=== PATIENT | female | born 1990 | race American Indian/Alaskan Native ===

== ENCOUNTER 2018-06-30 06:21 | Inpatient (IN) | payer OTHER ==
[~2018-06-30 06:21] MED LIST: Nalbuphine 20 MG/ML 1 ML Syringe IVPUSH PRN; Oxytocin/Lactated Ringers 10 UNIT/1,000 ML BAG IV SCH; Sodium Chloride 0.9% 10 ML Syringe FLUSH PRN
[2018-06-30] MEDS ORDERED: Pneumococcal Polyvalent-23 Vaccine 0.5 ML SDV IM ONE (06:46)
[2018-06-30] MEDS ORDERED: Citric Acid/Sodium Citrate Solution 30 ML Cup ONE (06:49)
[2018-06-30] MEDS: Lactated Ringers 1,000 ML IV SCH ×3 (06:53→09:24)
[2018-06-30] MEDS ORDERED: ceFAZolin 2 GM in Premix Bag 1 BAG IV ONE (07:00)
[2018-06-30] MEDS ORDERED: Metoclopramide 10 MG/2 ML SDV IVPUSH ONE (07:00)
[2018-06-30] MEDS ORDERED: Citric Acid/Sodium Citrate Solution 30 ML Cup PO ONE (07:00)
[2018-06-30] MEDS ORDERED: Bupivacaine 0.5% 30 ML SDV ONE (07:14)
[2018-06-30] MEDS ORDERED: ceFAZolin 1 GM Vial ONE (07:15)
[2018-06-30] MEDS ORDERED: Oxytocin 10 Units/1 ML SDV ONE (07:17)
[2018-06-30] MEDS ORDERED: Bupivacaine 0.75%/D5W 2 ML Amp ONE (07:19)
[2018-06-30] MEDS ORDERED: Morphine PF 1 MG/ML Amp ONE (07:22)
[2018-06-30] MEDS ORDERED: Phenylephrine/Normal Saline 100 MCG/ML 10 ML Syringe ONE (07:51)
[2018-06-30] MEDS ORDERED: Lactated Ringers 1,000 ML ONE (07:59)
[2018-06-30] MEDS ORDERED: Ketorolac 30 MG/ML SDV ONE (08:11)
[2018-06-30] MEDS ORDERED: fentaNYL 100 MCG/2 ML SDV IVPUSH PRN (08:41)
--- NOTE | 2018-06-30 08:42 | PCM.POSTAN ---
POST ANESTHESIA ASSESSMENT - MENTAL STATUS Mental Status: Alert, Oriented - VITAL SIGNS Pulse Rate: 73 SaO2: 96 Resp Rate: 10 Blood Pressure: 95/57 Temperature: 36.3 C - RESPIRATORY Respiratory Status: Respiratory Rate WNL, Airway Patent, O2 Saturation Stable, Supplemental Oxygen - CARDIOVASCULAR CV Status: Pulse Rate WNL, Blood Pressure Stable - GASTROINTESTINAL GI Status: No Symptoms - PAIN Pain Score: 0 - POST OP HYDRATION Hydration Status: Adequate & Stable - OBSERVATIONS Free Text/Narrative:: no anesthesia complications noted
--- NOTE | 2018-06-30 08:45 | PCM.OPNOTE ---
- General Post-Op/Procedure Note Date of Surgery/Procedure: 06/30/18 Operative Procedure(s): repeat section Findings: viable IUP, male weight 7#1oz, 05/06 at 0808 Pre Op Diagnosis: prior Post-Op Diagnosis: Same Anesthesia Technique: Spinal Primary Surgeon: Heather Atowod Anesthesia Provider: Milan Aranda Wing Mailer Machine Operator: Mattie Kc Role of Wing Mailer Machine Operator: patient safety Fluid Replacement, Intraop: 3,000 Output, Urine Amount: 75 EBL in mLs: 350 Complications: None Condition: Good Free Text/Narrative:: The patient was taken to the operating room where spinal anesthesia was dosed to surgical levels without difficulty. The patient was prepped and draped in the usual sterile fashion in the dorsal supine position with a leftward tilt. A Pfannenstiel skin incision was made with the scalpel and carried through to the underlying layer of fascia. The fascia was incised in the midline and extended laterally using Guajardo scissors. Ginette clamps were used to elevate the superior aspect of the fascial incision, which was elevated, and the underlying rectus muscles were dissected off bluntly and using Guajardo scissors. Attention was then turned to the inferior aspect of the fascial incision, which in similar fashion was grasped with Ginette clamps, elevated, and the underlying rectus muscles were dissected off bluntly and using the guajardo. The rectus muscles were dissected in the midline. The peritoneum was entered bluntly; this incision was extended superiorly and inferiorly with good visualization of the bladder. The bladder blade was inserted. The vesicouterine peritoneum was identified and entered sharply using Metzenbaum scissors. This incision was extended laterally and the bladder flap was created digitally. The bladder blade was reinserted. The lower uterine segment was incised in a transverse fashion using the scalpel and with digital traction. Clear fluid was noted. The infant was subsequently delivered by flexing the head to the incision. Kiwi vacuum used to assist. Body and shoulders followed without difficulty. The cord was clamped and cut. The was subsequently handed to the awaiting barrel charrer whose presence had been requested.. The placenta was delivered spontaneously intact with a three-vessel cord noted. The uterus was exteriorized and cleared of all clots and debris. The uterine incision was repaired in 2 layers using 0 monocryl. Hemostasis was visualized. Hemostasis was visualized bilaterally. The uterus was returned to the abdomen. The uterine incision was reexamined and it was noted to be hemostatic. The pelvis was copiously irrigated. The fascia was closed with 1 PDS suture, and the skin was closed with 3-0 monocryl. Sponge, lap, and instrument counts were correct x2. The patient was stable at the completion of the procedure and was subsequently transferred to the recovery room in stable condition.
--- NOTE | 2018-06-30 08:45 | PCM.PREANE ---
Preanesthetic Assessment - Anesthesia/Transfusion/Family Hx Anesthesia History: Prior Anesthesia Without Reaction Family History of Anesthesia Reaction: No Transfusion History: No Prior Transfusion(s) - Review of Systems General: No Symptoms Pulmonary: No Symptoms Cardiovascular: No Symptoms Gastrointestinal: No Symptoms Neurological: No Symptoms Other: Reports: None - Physical Assessment NPO Status Date: 06/29/18 NPO Status Time: 22:30 Pulse: 71 O2 Sat by Pulse Oximetry: 100 Respiratory Rate: 14 Blood Pressure: 111/68 Temperature: 36.8 C Vital Signs: Last Vital Signs Temp 36.3 C 06/30/18 08:42 Pulse 73 06/30/18 08:42 Resp 10 L 06/30/18 08:42 BP 95/57 L 06/30/18 08:42 Pulse Ox 96 06/30/18 08:42 Height: 1.65 m Weight: 85.729 kg ASA Class: 2 Mental Status: Alert & Oriented x3 Airway Class: Mallampati = 1 Dentition: Reports: Implants (top right 2nd), Broken Tooth/Teeth (top left 2nd) Thyro-Mental Finger Breadths: 3 Mouth Opening Finger Breadths: 3 ROM/Head Extension: Full Lungs: Clear to Auscultation, Normal Respiratory Effort Cardiovascular: Regular Rate, Regular Rhythm - Lab Values: Laboratory Last Values WBC 7.22 K/mm3 (3.98-10.04) 06/30/18 06:40 RBC 4.35 M/mm3 (3.98-5.22) 06/30/18 06:40 Hgb 10.9 gm/L (11.2-15.7) L 06/30/18 06:40 Hct 34.1 % (34.1-44.9) 06/30/18 06:40 MCV 78.4 fl (79.4-94.8) L 06/30/18 06:40 MCH 25.1 pg (25.6-32.2) L 06/30/18 06:40 MCHC 32.0 g/dl (32.2-35.5) L 06/30/18 06:40 RDW Std Deviation 36.6 fL (36.4-46.3) 06/30/18 06:40 Plt Count 278 K/mm3 (182-369) 06/30/18 06:40 MPV 9.7 fl (9.4-12.3) 06/30/18 06:40 Neut % (Auto) 62.3 % (34.0-71.1) 06/30/18 06:40 Lymph % (Auto) 29.1 % (19.3-51.7) 06/30/18 06:40 [place] % (Auto) 6.9 % (4.7-12.5) 06/30/18 06:40 Eos % (Auto) 1.4 (0.7-5.8) 06/30/18 06:40 Baso % (Auto) 0.3 % (0.1-1.2) 06/30/18 06:40 Neut # (Auto) 4.50 K/mm3 (1.56-6.13) 06/30/18 06:40 Lymph # (Auto) 2.10 K/mm3 (1.18-3.74) 06/30/18 06:40 Grant # (Auto) 0.50 K/mm3 (0.24-0.36) H 06/30/18 06:40 Eos # (Auto) 0.10 K/mm3 (0.04-0.36) 06/30/18 06:40 Baso # (Auto) 0.02 K/mm3 (0.01-0.08) 06/30/18 06:40 Urine Color Yellow (Yellow) 06/30/18 07:24 Urine Appearance Cloudy (Clear) H 06/30/18 07:24 Urine pH 7.0 (5.0-8.0) 06/30/18 07:24 Ur Specific [place] 1.025 (1.005-1.030) 06/30/18 07:24 Urine Protein Negative (Negative) 06/30/18 07:24 Urine Glucose (UA) Negative (Negative) 06/30/18 07:24 Urine Ketones Negative (Negative) 06/30/18 07:24 Urine Occult Blood Negative (Negative) 06/30/18 07:24 Urine Nitrite Negative (Negative) 06/30/18 07:24 Urine Bilirubin Negative (Negative) 06/30/18 07:24 Urine Urobilinogen 1.0 (0.2-1.0) 06/30/18 07:24 Ur Leukocyte Esterase 1+ (Negative) H 06/30/18 07:24 Urine Opiates Screen Negative (NEGATIVE) 06/30/18 07:21 Ur Buprenorphine Scrn Negative (NEGATIVE) 06/30/18 07:21 Ur Oxycodone Screen Negative (NEGATIVE) 06/30/18 07:21 Urine Methadone Screen Negative (NEGATIVE) 06/30/18 07:21 Ur Propoxyphene Screen Negative (NEGATIVE) 06/30/18 07:21 Ur Barbiturates Screen Negative (NEGATIVE) 06/30/18 07:21 Ur Tricyclics Screen Negative (NEGATIVE) 06/30/18 07:21 Ur Phencyclidine Scrn Negative (NEGATIVE) 06/30/18 07:21 Ur Amphetamine Screen Negative (NEGATIVE) 06/30/18 07:21 U Methamphetamines Scrn Negative (NEGATIVE) 06/30/18 07:21 U Benzodiazepines Scrn Negative (NEGATIVE) 06/30/18 07:21 U Cocaine Metab Screen Negative (NEGATIVE) 06/30/18 07:21 U Marijuana (THC) Screen Negative (NEGATIVE) 06/30/18 07:21 Blood Type O POSITIVE 06/30/18 06:48 Gel Antibody Screen Negative 06/30/18 06:48 - Allergies Allergies/Adverse Reactions: Allergies Allergy/AdvReac Type Severity Reaction Status Date / Time No Known Allergies Allergy Verified 06/30/18 06:50 - Anesthesia Plan Pre-Op Medication Ordered: Antacids - Acknowledgements Anesthesia Type Planned: Spinal Pt an Appropriate Candidate for the Planned Anesthesia: Yes Alternatives and Risks of Anesthesia Discussed w Pt/Guardian: Yes Pt/Guardian Understands and Agrees with Anesthesia Plan: Yes PreAnesthesia Questionnaire - Past Health History Medical/Surgical History: Denies Medical/Surgical History Gastrointestinal History: Reports: GERD 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 History: Reports: Psychiatric History: Reports: Bipolar Other Psychiatric History: not medicated for bipolar - Past Surgical History HEENT Surgical History: Reports: Oral Surgery Female Surgical History: Reports: Section Other Female Surgeries/Procedures: x3 - SUBSTANCE USE Smoking Status *Q: Former Smoker Tobacco Use Within Last Twelve Months: Cigarettes Recreational Drug Use History: Yes Recreational Drug Type: Reports: Amphetamines (Speed), Methamphetamine - HOME MEDS Home Medications: Home Meds Pnv No.122/Iron/Folic Acid [ Multi Tablet] 1 each PO DAILY 06/30/18 [ History] Ranitidine [Zantac] 150 mg PO BID 06/30/18 [History] - CURRENT (IN HOUSE) MEDS Current Meds: Current Medications Fentanyl (Sublimaze) 50 mcg IVPUSH Q5M PRN PRN Reason: Pain Lactated Ringer's (Ringers, Lactated) 1,000 mls @ 125 mls/hr IV ASDIRECTED [facility] Last Admin: 06/30/18 07:22 Dose: 125 mls/hr Oxytocin/Lactated Ringer's (Pitocin In Lr 10 Units/1,000 Ml) 10 unit in 1,000 mls @ 100 mls/hr IV ASDIRECTED [facility] Nalbuphine HCl (Nubain) 10 mg IVPUSH Q2H PRN PRN Reason: pain Sodium Chloride (Saline Flush) 10 ml FLUSH ASDIRECTED PRN PRN Reason: Keep Vein Open Discontinued Medications Bupivacaine HCl (Marcaine 0.5%) Confirm Administered Dose 30 ml .ROUTE .STK-MED ONE Stop: 06/30/18 07:15 Bupivacaine HCl/Dextrose (Marcaine 0.75% Spinal) Confirm Administered Dose 2 ml .ROUTE .STK-MED ONE Stop: 06/30/18 07:20 Cefazolin Sodium (Ancef) Confirm Administered Dose 2 gm .ROUTE .STK-MED ONE Stop: 06/30/18 07:16 Citric Acid/Sodium Citrate (Bicitra Solution) 30 ml PO ONETIME ONE Stop: 06/30/18 07:01 Last Admin: 06/30/18 06:53 Dose: 30 ml Citric Acid/Sodium Citrate (Bicitra Solution) Confirm Administered Dose 30 ml .ROUTE .STK-MED ONE Stop: 06/30/18 06:50 Cefazolin Sodium/Dextrose 2 gm (/ Premix) 50 mls @ 100 mls/hr IV ONETIME ONE Stop: 06/30/18 07:29 Lidocaine HCl (Xylocaine-Mpf 1%) Confirm Administered Dose 5 mls @ as directed .ROUTE .STK-MED ONE Stop: 06/30/18 07:20 Lactated Ringer's (Ringers, Lactated) Confirm Administered Dose 1,000 mls @ as directed .ROUTE .STK-MED ONE Stop: 06/30/18 08:00 Influenza Virus Vaccine (Pharmacy To Dose - Influenza Vaccine) 0 each IM ONETIME ONE Stop: 06/30/18 06:47 Ketorolac Tromethamine (Toradol) Confirm Administered Dose 30 mg .ROUTE .STK- MED ONE Stop: 06/30/18 08:12 Metoclopramide HCl (Reglan) 10 mg IVPUSH ONETIME ONE Stop: 06/30/18 07:01 Last Admin: 06/30/18 06:53 Dose: 10 mg Morphine Sulfate (Duramorph Pf) Confirm Administered Dose 1 mg .ROUTE .STK-MED ONE Stop: 06/30/18 07:23 Oxytocin (Pitocin) Confirm Administered Dose 10 unit .ROUTE .STK-MED ONE Stop: 06/30/18 07:18 Phenylephrine HCl (Phenylephrine In Ns 100 Mcg/Ml) Confirm Administered Dose 1 mg .ROUTE .STK-MED ONE Stop: 06/30/18 07:52 Pneumococcal Polyvalent Vaccine (Pneumovax 23) 0.5 ml IM .ONCE ONE Stop: 06/30/18 06:47
[2018-06-30] MEDS ORDERED: Naloxone 0.4 MG/ML SDV IVPUSH PRN (09:51)
[2018-06-30] MEDS ORDERED: Dextrose 5%-Lactated Ringers 1,000 ML IV SCH (09:51)
[2018-06-30] MEDS ORDERED: Docusate Sodium 100 MG Cap PO PRN (09:51)
[2018-06-30] MEDS ORDERED: ePHEDrine 50 MG/ML SDV IVPUSH PRN (09:51)
[2018-06-30] MEDS ORDERED: Lanolin 100% Cream 7 GM Tube TOP PRN (09:51)
[2018-06-30] MEDS ORDERED: Ondansetron 4 MG/2 ML SDV ONE (09:56)
[2018-06-30] MEDS: diphenhydrAMINE 50 MG/ML SDV IVPUSH PRN ×2 (15:36→23:02)
[2018-06-30] MEDS ORDERED: Lactated Ringers 1,000 ML IV ONE (15:52)
[2018-06-30] MEDS: Lactated Ringers 1,000 ML ONE ×2 (16:30→17:00)
[2018-06-30] MEDS: Ibuprofen 600 MG Tab PO PRN (23:03)
[2018-07-01] MEDS: Acetaminophen/oxyCODONE 325-5 MG Tab PO PRN ×5 (01:06→22:54)
--- NOTE | 2018-07-01 07:30 | PCM48HPAN ---
Post Anesthesia Note - EVALUATION WITHIN 48HRS OF ANESTHETIC Vital Signs in Normal Range: Yes Patient Participated in Evaluation: Yes Respiratory Function Stable: Yes Airway Patent: Yes Cardiovascular Function Stable: Yes Hydration Status Stable: Yes Pain Control Satisfactory: Yes Nausea and Vomiting Control Satisfactory: Yes Mental Status Recovered: Yes Pulse Rate: 64 Resp Rate: 14 Temperature: 36.6 C Blood Pressure: 93/73 - COMMENTS/OBSERVATIONS Free Text/Narrative:: no anesthesia complications noted
[2018-07-01] MEDS: Ibuprofen 600 MG Tab PO PRN ×2 (13:36→20:57)
[2018-07-02] MEDS: Acetaminophen/oxyCODONE 325-5 MG Tab PO PRN ×2 (02:54→09:06)
[2018-07-02] MEDS: Ibuprofen 600 MG Tab PO PRN (06:46)
--- NOTE | 2018-07-02 09:33 | PCM.DCSUM1 ---
Discharge Summary - Hospital Course Diagnosis: Stroke: No - Discharge Data Discharge Date: 07/02/18 Discharge Disposition: Home, Self-Care 01 Condition: Good - Patient Summary/Data Operative Procedure(s) Performed: repeat section Consults: Consultations 06/30/18 09:51 Consult to Spiritual Care [CONS] Routine - Patient Instructions Diet: Usual Diet as Tolerated Activity: No Strenuous Activities Driving: Do Not Drive Showering/Bathing: May Shower Wound/Incision Care: Keep Operative Site/Wound Site Clean and Dry Notify Provider of: Fever, Increased Pain, Swelling and Redness, Drainage, Nausea and/or Vomiting - Discharge Plan *PRESCRIPTION DRUG MONITORING PROGRAM REVIEWED*: No *COPY OF PRESCRIPTION DRUG MONITORING REPORT IN PATIENT KUN: No Home Medications: Home Meds Pnv No.122/Iron/Folic Acid [ Multi Tablet] 1 each PO DAILY 06/30/18 [ History] Ranitidine [Zantac] 150 mg PO BID 06/30/18 [History] - Discharge Summary/Plan Comment DC Time >30 min.: No - General Info Date of Service: 07/02/18 Functional Status: Reports: Pain Controlled - Review of Systems General: Reports: No Symptoms HEENT: Reports: No Symptoms Pulmonary: Reports: No Symptoms Cardiovascular: Reports: No Symptoms Gastrointestinal: Reports: No Symptoms Genitourinary: Reports: No Symptoms Musculoskeletal: Reports: No Symptoms Skin: Reports: No Symptoms Neurological: Reports: No Symptoms Psychiatric: Reports: No Symptoms - Patient Data Vitals - Most Recent: Last Vital Signs Temp 36.5 C 07/01/18 20:13 Pulse 63 07/01/18 20:13 Resp 16 07/01/18 20:13 BP 134/108 H 07/01/18 20:13 Pulse Ox 98 07/01/18 20:13 Weight - Most Recent: 85.729 kg I&O - Last 24 hours: Intake & Output 07/01/18 07/02/18 07/02/18 22:59 06:59 14:59 Intake Total 600 Output Total 350 Balance 250 Lab Results - Last 24 hrs: Laboratory Results - last 24 hr 07/01/18 Range/Units 06:10 RPR Non-reactive (NONREACTIVE) Med Orders - Current: Current Medications Diphenhydramine HCl (Benadryl) 25 mg IVPUSH Q6H PRN PRN Reason: Itching or Nausea Last Admin: 06/30/18 23:02 Dose: 25 mg Docusate Sodium (Colace) 100 mg PO Q12H PRN PRN Reason: Constipation Last Admin: 07/01/18 12:07 Dose: 100 mg Emollient Ointment (Lansinoh Hpa) 0 gm TOP ASDIRECTED PRN PRN Reason: Sore Nipples Ephedrine Sulfate (Ephedrine Sulfate) 5 mg IVPUSH SEECOMMENT PRN PRN Reason: Other Ibuprofen (Motrin) 600 mg PO Q6H PRN PRN Reason: mild pain or fever Last Admin: 07/02/18 06:46 Dose: 600 mg Naloxone HCl (Narcan) 0.1 mg IVPUSH SEECOMMENT PRN PRN Reason: Respiratory Depression Oxycodone/Acetaminophen (Percocet 325-5 Mg) 2 tab PO Q4H PRN PRN Reason: Pain (moderate 4-6) Last Admin: 07/02/18 09:06 Dose: 2 tab Discontinued Medications Bupivacaine HCl (Marcaine 0.5%) Confirm Administered Dose 30 ml .ROUTE .STK-MED ONE Stop: 06/30/18 07:15 Last Admin: 06/30/18 07:58 Dose: 20 ml Bupivacaine HCl/Dextrose (Marcaine 0.75% Spinal) Confirm Administered Dose 2 ml .ROUTE .STK-MED ONE Stop: 06/30/18 07:20 Cefazolin Sodium (Ancef) Confirm Administered Dose 2 gm .ROUTE .STK-MED ONE Stop: 06/30/18 07:16 Citric Acid/Sodium Citrate (Bicitra Solution) 30 ml PO ONETIME ONE Stop: 06/30/18 07:01 Last Admin: 06/30/18 06:53 Dose: 30 ml Citric Acid/Sodium Citrate (Bicitra Solution) Confirm Administered Dose 30 ml .ROUTE .STK-MED ONE Stop: 06/30/18 06:50 Last Admin: 06/30/18 10:03 Dose: Not Given Fentanyl (Sublimaze) 50 mcg IVPUSH Q5M PRN PRN Reason: Pain Stop: 06/30/18 18:00 Cefazolin Sodium/Dextrose 2 gm (/ Premix) 50 mls @ 100 mls/hr IV ONETIME ONE Stop: 06/30/18 07:29 Last Admin: 06/30/18 10:03 Dose: Not Given Lactated Ringer's (Ringers, Lactated) 1,000 mls @ 125 mls/hr IV ASDIRECTED [facility] Last Admin: 06/30/18 09:24 Dose: 125 mls/hr Oxytocin/Lactated Ringer's (Pitocin In Lr 10 Units/1,000 Ml) 10 unit in 1,000 mls @ 100 mls/hr IV ASDIRECTED [facility] Lidocaine HCl (Xylocaine-Mpf 1%) Confirm Administered Dose 5 mls @ as directed .ROUTE .STK-MED ONE Stop: 06/30/18 07:20 Lactated Ringer's (Ringers, Lactated) Confirm Administered Dose 1,000 mls @ as directed .ROUTE .STK-MED ONE Stop: 06/30/18 08:00 Dextrose/Lactated Ringer's (Dextrose 5%-Lactated Ringers) 1,000 mls @ 125 mls/ hr IV ASDIRECTED [facility] Stop: 06/30/18 17:50 Last Admin: 06/30/18 12:30 Dose: 125 mls/hr Lactated Ringer's (Ringers, Lactated) Confirm Administered Dose 1,000 mls @ as directed .ROUTE .STK-MED ONE Stop: 06/30/18 15:51 Last Admin: 06/30/18 17:00 Dose: 150 mls/hr Lactated Ringer's (Ringers, Lactated) 1,000 mls @ 999 mls/hr IV .BOLUS ONE Stop: 06/30/18 16:52 Last Admin: 06/30/18 15:58 Dose: 999 mls/hr Influenza Virus Vaccine (Pharmacy To Dose - Influenza Vaccine) 0 each IM ONETIME ONE Stop: 06/30/18 06:47 Ketorolac Tromethamine (Toradol) Confirm Administered Dose 30 mg .ROUTE .STK- MED ONE Stop: 06/30/18 08:12 Metoclopramide HCl (Reglan) 10 mg IVPUSH ONETIME ONE Stop: 06/30/18 07:01 Last Admin: 06/30/18 06:53 Dose: 10 mg Morphine Sulfate (Duramorph Pf) Confirm Administered Dose 1 mg .ROUTE .STK-MED ONE Stop: 06/30/18 07:23 Nalbuphine HCl (Nubain) 10 mg IVPUSH Q2H PRN PRN Reason: pain Ondansetron HCl (Zofran) Confirm Administered Dose 4 mg .ROUTE .STK-MED ONE Stop: 06/30/18 09:57 Last Admin: 06/30/18 10:02 Dose: 4 mg Oxytocin (Pitocin) Confirm Administered Dose 10 unit .ROUTE .STK-MED ONE Stop: 06/30/18 07:18 Phenylephrine HCl (Phenylephrine In Ns 100 Mcg/Ml) Confirm Administered Dose 1 mg .ROUTE .STK-MED ONE Stop: 06/30/18 07:52 Pneumococcal Polyvalent Vaccine (Pneumovax 23) 0.5 ml IM .ONCE ONE Stop: 06/30/18 06:47 Last Admin: 07/01/18 17:43 Dose: 0.5 ml Sodium Chloride (Saline Flush) 10 ml FLUSH ASDIRECTED PRN PRN Reason: Keep Vein Open - Exam General: Reports: Alert, Oriented HEENT: Reports: Pupils Equal, Pupils Reactive, EOMI, Mucous Membr. Moist/[place] Neck: Reports: Supple Lungs: Reports: Clear to Auscultation, Normal Respiratory Effort Cardiovascular: Reports: Regular Rate, Regular Rhythm GI/Abdominal Exam: Normal Bowel Sounds, Soft, Non-Tender, No Organomegaly, No Distention, No Abnormal Bruit, No Mass, Pelvis Stable Back Exam: Reports: Normal Inspection, Full Range of Motion Extremities: Normal Inspection, Normal Range of Motion, Non-Tender, No Pedal Edema, Normal Capillary Refill Skin: Reports: Warm, Dry, Intact Wound/Incisions: Reports: Healing Well Neurological: Reports: No New Focal Deficit Psy/Mental Status: Reports: Alert, Normal Affect, Normal Mood
[2018-07-02 09:52] VITALS: BP 112/79
== END 2018-07-02 11:15 | disposition home or self-care (01) | DRG 788 ==
LOC: JD.OB 06:21
PROVIDERS: ADMIT Obstetrics & Gynecology; ATTEND Obstetrics & Gynecology
PROC: 10D00Z1 Extraction of Products of Conception, Low, Open Approach (ICD-10-PCS; principal; 2018-06-30)
PROC: 3E0234Z Introduction of Serum, Toxoid and Vaccine into Muscle, Percutaneous Approach (ICD-10-PCS; 2018-07-01)
PROC: 3E02340 Introduction of Influenza Vaccine into Muscle, Percutaneous Approach (ICD-10-PCS; 2018-07-01)
DX: O34.219 Maternal care for unspecified type scar from previous cesarean delivery (principal); N85.8 Other specified noninflammatory disorders of uterus; Z3A.38 38 weeks gestation of pregnancy; Z37.0 Single live birth; Z87.891 Personal history of nicotine dependence; Z87.440 Personal history of urinary (tract) infections; Z23 Encounter for immunization
CPT/HCPCS: 36415; 59025; 80306; 81003; 85025; 86592; 86850; 86900; 86901; 90471; 90686; 90732; 94762; A9270-GY; G0008; G0009; J0690; J1200; J1885; J2274; J2370; J2405; J2590; J2765; J3490; J7042; J7120